=== PATIENT | female | born 1990 | race American Indian/Alaskan Native ===

== ENCOUNTER 2020-04-15 10:43 | Emergency (ER) | payer OTHER, MEDICAID ==
[2020-04-15 11:09] VITALS: BP 117/78
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
== END 2020-04-15 11:41 | disposition home or self-care (01) ==
LOC: ED 10:43
DX: M62.838 Other muscle spasm (principal); V89.2XXA Person injured in unspecified motor-vehicle accident, traffic, initial encounter; Y93.89 Activity, other specified; Y92.410 Unspecified street and highway as the place of occurrence of the external cause; Y99.8 Other external cause status
CPT/HCPCS: 99282